=== PATIENT | male | born 1965 | race Caucasian/White ===

== ENCOUNTER 2016-11-14 23:54 | Inpatient (IN) | payer OTHER ==
--- NOTE | ~2016-11-14 | EKG ---
PATIENT: RADU FARIAS UNIT #: [id number] Ventricular Rate: 75 BPM Atrial Rate: 75 BPM P-R Interval: 132 ms QRS Duration: 100 ms Q-T Interval: 372 ms QTC Calculation(Bezet): 415 ms P [place]: 33 degrees Calculated R [place]: 46 degrees Calculated T [place]: 16 degrees Diagnosis Line: Normal sinus rhythm with sinus arrhythmia Diagnosis Line: Normal ECG Diagnosis Line: When compared with ECG of 14-NOV-2016 23:45, Diagnosis Line: No significant change was found Diagnosis Line: Confirmed by LOIDA SYLVESTER MD ([id number]) on 11/20/2016 Diagnosis Line: 11:16:32 PM INTERPRETING MD: HIGINIO MORGAN
--- NOTE | ~2016-11-14 | EKG ---
PATIENT: RADU FARIAS UNIT #: [id number] Ventricular Rate: 52 BPM Atrial Rate: 52 BPM P-R Interval: 164 ms QRS Duration: 108 ms Q-T Interval: 476 ms QTC Calculation(Bezet): 442 ms P [place]: 32 degrees Calculated R [place]: 22 degrees Calculated T [place]: 3 degrees Diagnosis Line: Sinus bradycardia Diagnosis Line: Nonspecific T wave abnormality Diagnosis Line: Otherwise normal ECG Diagnosis Line: No previous ECGs available Diagnosis Line: Confirmed by ZACH BRASWELL MD ([id number]) on 11/16/2016 Diagnosis Line: 2:15:42 PM INTERPRETING MD: MICHAELLE MORGAN
--- NOTE | ~2016-11-14 | DS ---
Unit #: [id number] #: [id number] Patient: RADU FARIAS [id number] [address] [address] [id number] I MR#: [id number] NAME: RADU FARIAS ROOM: 229 Age: 51 Sex: M Admission Date: 11/15/2016 : 1965 Discharge Date: 11/21/2016 Attending Physician: Augustina Sanchez M.D. Primary Care Physician: Gordon Garcia M.D. DISCHARGE SUMMARY PRINCIPAL DIAGNOSES 1. Acute pancreatitis. 2. Cholelithiasis, status post laparoscopic cholecystectomy. 3. Systemic inflammatory response syndrome secondary to #1. 4. Thrombocytopenia, likely secondary to illness in combination with alcohol. Discharge platelet count 86. 5. Reactive leukocytosis. Discharge white blood cell count 19.7. 6. Hyperkalemia, resolved. 7. Hematuria secondary to traumatic Loya catheter placement, resolved. 8. Transaminitis secondary to alcohol, resolved. 9. Chronic alcohol abuse without evidence of withdrawal. 10. Morbid obesity. 11. Moderate protein malnutrition. 12. Hepatic steatosis. 13. Anxiety. 14. Hypertension. CONSULTANTS Dr. Woods, general surgery. PROCEDURES 1. Laparoscopic cholecystectomy on 11/20/2016. This occurred without complication. 2. CT scan of abdomen and pelvis with contrast, 11/15/2016, with mild to moderate acute pancreatitis. Fluid tracking to the paracolic gutters. Uncomplicated cholelithiasis. Fatty infiltration of liver noted. 3. Right upper quadrant ultrasound, 11/15/2016, with diffuse fatty liver. A 1.3 cm gallstone. 4. HIDA scan on 11/16/2016 with no evidence of cystic or common duct obstruction. CLINICAL HISTORY AND HOSPITAL COURSE Mr. Farias is a very nice 51-year-old male who presents to the emergency department with complaints of abdominal pain. Please refer to History and Physical for further details. CT scan of the abdomen and pelvis in the emergency department revealed acute pancreatitis. In conjunction with these findings, the patient was found to have an elevated lipase of greater than 1900. He was subsequently admitted. The patient was started on IV fluids, make n.p.o. and antiemetics in addition to pain medication. The patient does have a strong history of alcohol use but was also found to have gallstones on CT. With supportive measure, pancreatitis resolved. I will note his triglycerides were Unit #: [id number] #: [id number] Patient: RADU FARIAS checked but were not significantly elevated. It is unclear of the source of patient's pancreatitis but it has resolved. He has been counseled significantly regarding alcohol cessation. He expresses understanding. He states, "I will no longer drink alcohol." I will note he did not have any evidence of withdrawal. In regard to patient's gallstones, LSA was consulted and patient underwent right upper quadrant ultrasound and HIDA scan, all with findings as noted. However, again, given his pancreatitis and prior reports of a "gallstone attack" he underwent laparoscopic cholecystectomy. He is now eating a regular diet without any pain, nausea or vomiting and will be discharged home. I will note, patient has had some significant leukocytosis but no evidence of infection has been found. Review of records also indicates he has had a leukocytosis ranging anywhere from 10,000 to 26,000 during this hospitalization. On day of discharge, white blood cell count is 19.7. This can be checked in a couple of weeks as an outpatient by patient's primary care physician. If he has persistent leukocytosis, he can be referred to Hematology as an outpatient. Patient did have severe electrolyte abnormalities but these have been corrected during hospitalization. He will be discharged home today. DISCHARGE CONDITION Stable. DISCHARGE STATUS Discharge to home. DISCHARGE MEDICATIONS 1. Ativan 1 mg p.o. q.8 h. p.r.n. for anxiety. 2. Amlodipine/benazepril 5/10 mg daily. 3. Lortab 5/325 one to two tablets p.o. q.6 h. p.r.n. pain. DISCHARGE INSTRUCTIONS 1. The patient was instructed to follow a heart-healthy, low-fat diet. 2. To refrain from any further alcohol use. 3. He can increase activity as tolerated. 4. I have written him off work through 11/25/2016 and he will return for one week beginning 11/26/2016 on light duty. FOLLOWUP 1. The patient will follow up with Dr. Woods in approximately 10 days. 2. Patient should follow up with his primary care physician, Dr. Garcia, in approximately 2 weeks and have repeat CBC at that time. Dictated by... Augustina Sanchez M.D. Unit #: [id number] #: [id number] Patient: RADU FARIAS DARLYN/angelo TD: 11/21/2016 20:28 JOB #: [id number] DISCHARGE SUMMARY Page 1 of 1 X Augustina Sanchez MD X DISCHARGE SUMMARY
--- NOTE | ~2016-11-14 | NM21 ---
[facility] A Service of [facility] RADIOLOGY TEXT RESULTS PATIENT: RADU FARIAS LOCATION: [facility] 321-01 : [birth year] UNIT #: [id number] AGE: [address]: Augustina Sanchez MD SEX: M ORDER DR: [id number] [facility] [address] [facility]. [place], [place] [address] [id number] I MR#: [id number] Acc #: [id number] NAME: RADU FARIAS : 1965 SEX: M STUDY DATE/TIME: 11/16/2016 12:38 UNIT: [address] ROOM: [facility] STUDY DESCRIPTION: NM Hepatobiliary W GB Attending Physician: Augustina Sanchez M.D. Ordering Physician: Duglas Holley M.D. Primary Care Physician: Gordon Garcia M.D. MEDICAL IMAGING REPORT This report is preliminary unless electronic signature is present EXAM Hepatobiliary scan INDICATION Pancreatitis. Acute onset. Epigastric and abdominal pain since hospitalization. PROCEDURE Patient was administered 5.3 mCi technetium labeled Choletec. CCK was not administered. COMPARISON Ultrasound from 11/15/2016 FINDINGS Liver shows symmetric extraction and excretion of radiotracer. Gallbladder fills by 30 minutes. IMPRESSION No evidence for cystic duct or common duct obstruction. Dictated by... Willie Mike M.D. THIS IS AN ELECTRONICALLY VERIFIED REPORT Willie Mike M.D. at 11/16/2016 4:51 PM KELLY/willem TD: 11/16/2016 15:06 JOB #: [id number] MEDICAL IMAGING REPORT Page 1 of 1 COPY
--- NOTE | ~2016-11-14 | HP ---
Unit #: [id number] #: [id number] Patient: RADU FARIAS [id number] [address] [place], [place] [address] [id number] E MR#: [id number] NAME: RADU FARIAS ROOM: Age: 51 Sex: M Admission Date: 11/14/2016 : 1965 Attending Physician: Mimi Colindres M.D. Primary Care Physician: Gordon Garcia M.D. HISTORY AND PHYSICAL CHIEF COMPLAINT Pancreatitis. HISTORY This pleasant 51-year-old male with hypertension, GERD, is admitted for pancreatitis. The patient states that over the past year he has experienced intermittent right upper quadrant, fairly significant pain. He had a similar episode two nights ago after eating a hot dog. However, yesterday he developed increasing epigastric discomfort and then nausea and vomiting with diaphoresis. Presented to this emergency department late last evening with initial blood pressure of 76/34. A CT scan was performed which was consistent with mild to moderate acute pancreatitis along with gallstones and fatty liver. Amylase and lipase at this time is normal, but I will repeat these values in the morning. The patient drinks about 6 to 12 beers a day, but again does have gallstones on CT scan. In the ER, he was bolused with 2 L of saline, and current blood pressure is 128/86. He was also treated with Zofran, morphine and ultimately Dilaudid. PAST MEDICAL HISTORY 1. GERD. 2. Hypertension. 3. Previous history of hepatitis C. 4. Anxiety. 5. Previous history of hyperlipidemia. 6. Negative stress Cardiolite in 2010. 7. Appendectomy. ALLERGIES No known drug allergies. The patient is allergic to cat dander. HOME MEDICATIONS 1. Lotrel 5/10 mg daily. 2. P.r.n. Ativan which the patient takes perhaps once a month. FAMILY HISTORY CAD, pancreatitis, gallbladder disease. SOCIAL HISTORY The patient lives with his . Stopped smoking 20 years ago. Drinks 6 to 12 beers on a daily basis but denies symptoms of withdrawal if not drinking. Does not use illicit drugs. Unit #: [id number] #: [id number] Patient: RADU FARIAS REVIEW OF SYSTEMS Notable for abdominal pain, nausea, vomiting, diaphoresis, hepatitis B, GERD, hypertension, appendectomy, anxiety. Also, right upper quadrant intermittent pain over the past year. All other systems were reviewed and are negative. PHYSICAL EXAMINATION GENERAL APPEARANCE: Pleasant, obese, 51-year-old male, currently in no acute distress. VITAL SIGNS: Temperature 97.4, pulse initially 48, current pulse is 62, respirations 15, initial blood pressure 76/34 which has improved to 128/86. O2 saturation 95% on room air. HEENT: Eyes PERRLA. Extraocular muscles are intact. Pharynx is benign. NECK: Supple without adenopathy or thyromegaly. CHEST: Clear. CARDIAC: Normal S1 and S2 without murmur. ABDOMEN: Bowel sounds are present. The patient is tender in the upper abdomen without rebound, guarding. No definite hepatosplenomegaly or masses. EXTREMITIES: Without clubbing, cyanosis or edema. Pedal pulses are present. NEUROLOGIC EXAM: The patient is awake, alert, oriented. Cranial nerves are intact. Equal strength throughout. DIAGNOSTIC STUDIES LABORATORY: Hematocrit is 49.6, white blood count is 24.3, normal platelet count. Four bands are noted. SMA-12 - glucose 169, potassium 3.4, chloride 116, CO2 is 8, calcium 8.3. Normal lipase and amylase. Alcohol level negligible. Cardiac markers are negative. IMAGING: CT scan consistent with mild to moderate acute pancreatitis. Gallstones, fatty liver, diverticular disease. CARDIOVASCULAR: EKG - sinus bradycardia, rate 52. ASSESSMENT 1. Pancreatitis: The patient does have gallstones on CT scan, and does sound as if he has episodes of biliary colic over the past year. Does, however, drink 6 to 12 beers daily. I am unsure if his pancreatitis is due to gallbladder pancreatitis versus alcohol abuse. 2. Episodes of biliary colic over the past year with gallstones noted on CT scan: The patient also has leukocytosis. 3. Metabolic acidosis. 4. Alcohol abuse: 6 to 12 beers daily. 5. History of hypertension with hypotension initially, now improved after fluids. 6. Previous history of hepatitis B. PLANS 1. Aggressive IV fluids, check I's and O's. 2. Pain control. 3. DVT and gastritis prophylaxis. 4. Check gallbladder ultrasound and triglyceride level. Unit #: [id number] #: [id number] Patient: RADU FARIAS 5. Will ask [facility] to see for biliary colic. 6. Vitamins. 7. Hold Lotrel. 8. Check B12 level. 9. Obtain ABG. 10. Zosyn for now pending gallbladder ultrasound. Dictated by Taz Alcala/cary TD: 11/15/2016 05:15 JOB #: [id number] HISTORY AND PHYSICAL Page 1 of 1 X Payal Pena MD X HISTORY AND PHYSICAL
--- NOTE | ~2016-11-14 | CO ---
Unit #: [id number] #: [id number] Patient: RADU FARIAS [id number] [address] [place], [place] [address] [id number] MR#: [id number] NAME: RADU FARIAS ROOM: 321 Age: 51 Sex: M Admission Date: 11/15/2016 : 1965 Attending Physician: Augustina Sanchez M.D. Primary Care Physician: Gordon Garcia M.D. Consultation Date: 11/15/2016 CONSULTATION REPORT HISTORY AND EXAM Mr. Farias is a 51-year-old gentleman who presented to the emergency department after sudden onset of copious nonbloody emesis and diarrhea at 8:00 p.m. last night. He also was complaining of some severe epigastric pain that was new. The patient had been eating around 1:00 in the afternoon and also drinking a significant amount of beer that day. He also has been complaining of some episodic right upper quadrant pain for several months. He denied any fever, chills, or jaundice. In the emergency room a CT scan showed parapancreatic edema consistent with pancreatitis. He also had uncomplicated gallstones without any biliary ductal dilatation. He does have a long history of alcohol abuse. PAST MEDICAL HISTORY Hepatitis C, reflux hypertension, anxiety, alcohol abuse, hyperlipidemia, and he is status post appendectomy. ALLERGIES No allergies to medication. MEDICATIONS His only medication includes Lotrel and Ativan on a p.r.n. basis. FAMILY HISTORY Atherosclerotic coronary artery disease and other family members who had pancreatitis. SOCIAL HISTORY He is and is at the bedside. He has not smoked for many years but he continues to drink on a daily basis. REVIEW OF SYSTEMS No fever, chills, hematemesis, hematochezia, melena, weight loss. PHYSICAL EXAMINATION VITAL SIGNS: Temperature is 97.4, pulse 60, respirations 16, blood pressure 136/69. GENERAL: He is awake, alert and oriented; however, he is diaphoretic and ill-appearing. HEENT: No scleral icterus. NECK: No carotid bruits. CARDIAC: Regular rate and rhythm without murmur. LUNGS: Clear throughout. ABDOMEN: Exquisitely tender in the epigastrium with involuntary guarding, but in the lower abdomen his abdomen is soft and there is no rebound Unit #: [id number] #: [id number] Patient: RADU FARIAS. EXTREMITIES: No edema. NEUROLOGIC: Grossly intact. DIAGNOSTIC STUDIES LABORATORY STUDIES: Blood gas shows a pH 7.354, pCO2 41, pO2 77 on room air. His initial basic metabolic panel showed sodium of 137, potassium 3.4, chloride 116, serum CO2 8, BUN 7, creatinine 0.6, glucose 169, calcium 8.3, albumin 3.6, total bilirubin 1.5, AST, ALT and alk phos are normal. Amylase and lipase 6 and 15, alcohol 5. Hemoglobin 16.2, hematocrit 49.6, white count 24,300, platelet 171,000. Repeat chemistries are pending at this time. I have also ordered lactic acid, magnesium and phosphorus. IMAGING STUDIES: Ultrasound of the gallbladder has been ordered and pending. ASSESSMENT AND PLAN Patient with moderate pancreatitis with a history of alcohol binge drinking and alcoholism, as well as cholelithiasis. They both were etiologic factors, especially given the fact that he has been having some right upper quadrant pain over the last several months. Lipids have been ordered and are pending. Patient will be admitted, hydrated and given supportive care. We will review his ultrasound but regardless of the etiology he should undergo laparoscopic cholecystectomy to remove the gallstones as an etiology factor. Serum CO2 and blood gas do not correlate. Repeat labs are pending. He needs continued hydration. Ultrasound of the gallbladder is pending. Alcohol withdrawal precautions have been ordered. Dictated by... Philip Woods M.D. FRANKY/ira TD: 11/16/2016 06:58 JOB #: [id number] CONSULTATION REPORT Page 1 of 1 X Philip Woods MD X CONSULTATION REPORT
--- NOTE | ~2016-11-14 | CR75 ---
[facility] A Service of [facility] RADIOLOGY TEXT RESULTS PATIENT: RADU FARIAS LOCATION: C2A 229-01 : [birth year] UNIT #: [id number] AGE: [address]: Augustina Sanchez MD SEX: M ORDER DR: [id number] [facility] [address] [facility]. [place], [place] [address] [id number] I MR#: [id number] Acc #: [id number] NAME: RADU FARIAS : 1965 SEX: M STUDY DATE/TIME: 11/20/2016 9:49 UNIT: C2A ROOM: 229 STUDY DESCRIPTION: CR Cholecystostomy Perc W Img Attending Physician: Augustina Sanchez M.D. Ordering Physician: Philip Woods M.D. Primary Care Physician: Gordon Garcia M.D. MEDICAL IMAGING REPORT This report is preliminary unless electronic signature is present EXAM Intraoperative cholangiogram INDICATIONS Laparoscopic cholecystectomy FLUOROSCOPY TIME 20 seconds and 2 images were submitted FINDINGS The study demonstrates injection of the cystic duct remnant. Contrast opacifies the common bile duct without evidence of obstruction. The visualized intrahepatic biliary radicles are unremarkable. Please refer to procedure report for complete details. Dictated by... Lazarus Lovell M.D. THIS IS AN ELECTRONICALLY VERIFIED REPORT Lazarus Lovell M.D. at 11/22/2016 9:02 AM ARS/to TD: 11/20/2016 13:24 JOB #: [id number] MEDICAL IMAGING REPORT Page 1 of 1 COPY
--- NOTE | ~2016-11-14 | CO ---
Unit #: [id number] #: [id number] Patient: RADU FARIAS [id number] [address] [address] [id number] I MR#: [id number] NAME: RADU FARIAS ROOM: 229 Age: 51 Sex: M Admission Date: 11/15/2016 : 1965 Attending Physician: Augustina Sanchez M.D. Primary Care Physician: Gordon Garcia M.D. Consultation Date: 11/19/2016 CONSULTATION REPORT REASON FOR CONSULTATION Gross hematuria. HISTORY This 51-year-old man was admitted with acute pancreatitis. He had a Loya catheter placed, somewhat traumatically, and this was followed by gross hematuria although it was not noticed until the next day. The hematuria has completely resolved. He is ready for his catheter to come out, according to general surgery. He denies any prior urologic history. Specifically, he has had no hematuria. He has no voiding complaints other than nocturia when he drinks beer. He has no frequency, urgency or trouble emptying. He has no family history of prostate cancer, history of urinary infections or stone disease. He sees Dr. Garcia and had PSA and digital exam which were normal at the fair last summer. His admission symptoms of pancreatitis are improved although cholecystectomy is being considered. PAST MEDICAL HISTORY 1. GERD. 2. Hypertension. 3. Prior history of hepatitis C. 4. Anxiety. 5. History of hyperlipidemia. 6. Negative Cardiolite in 2010. SURGERIES Appendectomy. MEDICATIONS Lotrel and Ativan at home. Currently receivin. Thiamine. 2. Zofran. 3. Multivitamins. 4. Magnesium. 5. Loperamide. 6. Dilaudid. 7. Ativan. 8. Hydralazine. 9. Pepcid. 10. Zosyn. 11. Bentyl. Unit #: [id number] #: [id number] Patient: RADU FARIAS 12. Combivent. ALLERGIES No known drug allergies. FAMILY HISTORY Negative for prostate cancer. SOCIAL HISTORY Stopped smoking 20 years after 15 years of one pack per day. Lives with his . Still drinks 6-12 beers daily. REVIEW OF SYSTEMS Abdominal pain, nausea, vomiting, intermittent right upper quadrant pain, anxiety. Urologic symptoms as noted above or lack thereof. Ten other systems reviewed and negative. PHYSICAL EXAMINATION GENERAL: The patient is awake, alert, comfortable, lying in bed. Loya catheter drainage morin bile-colored urine, clear. ABDOMEN: Large, soft, full. Upper abdominal tenderness but soft. GENITALIA: Normal circumcised penis, testes and epididymis, normal, descended. Digital exam deferred. DIAGNOSTIC STUDIES LABORATORY: BUN 15, creatinine 0.7. Urinalysis on admission - 25-50 white cells, 200-300 red cells, no bacteria. Urine culture final - no growth. IMAGING: A CT scan of the abdomen and pelvis with IV contrast shows normal kidneys, ureter and bladder. Prostate normal size with symmetric central calcification. No stones or obstruction seen. IMPRESSION 1. Transient gross hematuria consistent with Loya catheter trauma and has resolved. 2. No pre-existing urologic history or symptoms. PLAN Agree with catheter removal. Will follow in-house. If hematuria recurs, I have emphasized to patient that outpatient office cystoscopy would be appropriate to rule out any small lesion in the bladder. Thank you for the consultationAvinash. Dictated by... Philip Briones M.D. [facility]/cary TD: 11/19/2016 10:54 JOB #: [id number] Unit #: [id number] #: [id number] Patient: RADU FARIAS CC: Taz Lema M.D. CONSULTATION REPORT Page 1 of 1 X Philip Briones MD CONSULTATION REPORT
--- NOTE | ~2016-11-14 | US5 ---
[facility] A Service of [facility] RADIOLOGY TEXT RESULTS PATIENT: RADU FARIAS LOCATION: [facility] : [birth year] UNIT #: [id number] AGE: [address]: Augustina Sanchez MD SEX: M ORDER DR: [id number] [facility] [address] [facility]. [place], [place] [address] [id number] I MR#: [id number] Acc #: [id number] NAME: RADU FARIAS : 1965 SEX: M STUDY DATE/TIME: 11/15/2016 18:11 UNIT: [address] ROOM: [facility] STUDY DESCRIPTION: US Abdominal Complete Attending Physician: Augustina Sanchez M.D. Ordering Physician: Augustina Sanchez M.D. Primary Care Physician: Gordon Garcia M.D. MEDICAL IMAGING REPORT This report is preliminary unless electronic signature is present EXAM Right upper quadrant ultrasound HISTORY Abdomen pain, nausea, vomiting and diarrhea for 1 day. FINDINGS Ultrasound examination of the right upper quadrant demonstrates echogenic and coarsened hepatic parenchyma, characteristic of fatty infiltration of the liver and corresponding to findings on CT earlier today. A 1.3 cm gallstone. No gallbladder distension or gallbladder wall thickening or biliary ductal dilatation. The common bile duct measures 3 mm in diameter. Survey of the right kidney demonstrates no hydronephrosis. IMPRESSION 1. Diffuse fatty infiltration of the liver. 2. A 1.3 cm gallstone. 3. These are stable findings compared to CT earlier today. 4. No biliary dilatation, gallbladder wall thickening or gallbladder distension. Dictated by... Aden Chowdhury M.D. THIS IS AN ELECTRONICALLY VERIFIED REPORT Aden Chowdhury M.D. at 11/16/2016 12:04 AM KRYSTYNA/jean TD: 11/15/2016 21:28 JOB #: [id number] [facility] A Service of [facility] RADIOLOGY TEXT RESULTS PATIENT: RADU FARIAS LOCATION: [facility] -01 : [birth year] UNIT #: [id number] AGE: [address]: Augustina Sanchez MD SEX: M ORDER DR: MEDICAL IMAGING REPORT Page 1 of 1 COPY
--- NOTE | ~2016-11-14 | BMI ---
[facility] Nutrition Therapy DATE: 11/15/16 Patient: RADU FARIAS Physician: MARLEEN Address: [address] Room/Bed: [address] [place] [address], Zip: [place] [address] Admit Date: 11/15/16 Date of : [birth year] Height: 5 9 Weight: 282 128.3 HIGH BMI NOTE: ANTHROPOMETRICS: HT: 69" WT: 128.3 KG BMI: 41.8 INTERVENTION: 1. NO DIET ORDERED RECOMMENDATIONS: 1. ONCE MEDICALLY FEASIBLE, ADVANCE THE PT TO A HEART HEALTHY DIET TOLERATED AND APPROPRIATE. Respectfully, ELISE WANG RD, LD [facility] cc: client file
--- NOTE | ~2016-11-14 | CT2 ---
[facility] A Service of [facility] & [facility] RADIOLOGY TEXT RESULTS PATIENT: RADU FARIAS LOCATION: [facility] : [birth year] UNIT #: [id number] AGE: [address]: Mimi Colindres MD SEX: M ORDER DR: [id number] [facility] [address] [place], [place] [address] [id number] MR#: [id number] Acc #: [id number] NAME: RADU FARIAS : 1965 SEX: M STUDY DATE/TIME: 11/15/2016 2:37 UNIT: JASON ROOM: STUDY DESCRIPTION: CT Abd and Pelv W Cont Attending Physician: Mimi Colindres M.D. Ordering Physician: Basim Park M.D. Primary Care Physician: Gordon Garcia M.D. MEDICAL IMAGING REPORT This report is preliminary unless electronic signature is present EXAM Abdomen and pelvis CT with contrast, 11/15/2016 INDICATION Abdominal pain in a 51-year-old male, vomiting for over 4 hours after 6 beers. Abdominal pain, generalized weakness, nausea and vomiting. TECHNIQUE Contrast-enhanced abdomen and pelvic CT performed. No comparisons. This CT exam was performed with one or more of the following radiation dose reduction techniques: automatic exposure control, adjustment of mA and/or kV according to patient size, and iterative reconstruction. FINDINGS CT ABDOMEN: Included lung bases demonstrate atelectatic changes of the lower lobes, left greater than right. No pleural effusion. No pericardial effusion. Aorta demonstrates no aneurysm or dissection. There is a hiatal hernia containing fat. Spleen and adrenal glands are unremarkable. There is uncomplicated cholelithiasis and there is moderate fatty infiltration of the liver. The kidneys are normal. There is fullness and inflammatory change of the pancreatic body and tail and lesser involvement of the uncinate process and head of the pancreas. There is fluid tracking in the peripancreatic fat and into the small bowel mesentery and into the pericolic gutters, left greater than right. Imaging features are most characteristic of acute pancreatitis, mild to moderate in degree. No associated peripancreatic fluid collection identified to suggest pseudocyst at this time. Adjacent vasculature appears patent. Correlate with amylase and lipase levels. [facility] A Service of [facility] & [facility] RADIOLOGY TEXT RESULTS PATIENT: RADU FARIAS [id number] [birth year] UNIT #: [id number] AGE: [address]: Mimi Colindres MD SEX: M ORDER DR: CT PELVIS: Bladder unremarkable. Prostate within normal limits. No drainable fluid collection in the pelvis. Intermittent diverticulosis. Appendix surgically absent by history. Inguinal canal is unremarkable with exception of a tiny right inguinal hernia containing fat only. No suspicious bone lesion. IMPRESSION 1. Imaging features most characteristic of mild to moderate acute pancreatitis. There is no associated peripancreatic fluid collection to suggest pseudocyst. Small amount of fluid tracking in the pericolic gutters, left greater than right. Correlate with amylase and lipase levels. 2. Uncomplicated cholelithiasis. 3. Fatty infiltration of the liver. 4. The appendix is surgically absent. 5. Incidental diverticulosis. STAT * RESULT Dictated by... Cade Mckeon M.D. THIS IS AN ELECTRONICALLY VERIFIED REPORT Cade Mckeon M.D. at 11/15/2016 6:24 AM Belinda TD: 11/15/2016 03:12 JOB #: [id number] MEDICAL IMAGING REPORT Page 1 of 1 COPY
--- NOTE | ~2016-11-14 | OR ---
Unit #: [id number] #: [id number] Patient: RADU FARIAS [id number] [address] [address] [id number] I MR#: [id number] NAME: RADU FARIAS ROOM: 229 Date of Procedure: 11/20/2016 Admission Date: 11/15/2016 Surgeon: Philip Woods M.D. : 1965 Attending Physician: Augustina Sanchez M.D. Primary Care Physician: Gordon Garcia M.D. OPERATIVE REPORT PREOPERATIVE DIAGNOSIS Gallstone pancreatitis. POSTOPERATIVE DIAGNOSIS Gallstone pancreatitis. PROCEDURE PERFORMED Laparoscopic cholecystectomy with intraoperative cholangiogram. FINDINGS Normal cholangiogram. ANESTHESIA General endotracheal anesthesia. DIRECTOR OF PROPERTY MANAGEMENT Elizabeth. ESTIMATED BLOOD LOSS 30 mL. INDICATIONS FOR PROCEDURE A 51-year-old gentleman, who presented to the hospital with pancreatitis. Although, he has a significant alcohol history. He also was found to have cholelithiasis. After resolution of his pancreatitis, he is brought the operating room for cholecystectomy and cholangiogram. DESCRIPTION OF PROCEDURE The patient was transported from his hospital room to the operating room, and after induction of general endotracheal anesthesia, his abdominal wall hair was clipped, and he was prepped and draped in usual sterile fashion. The patient was already on Lovenox and had been given preoperative antibiotics. A 5-mm supraumbilical incision made. Veress needle was placed. Pneumoperitoneum was created. Then, a 5-mm trocar was placed. Laparoscope was introduced into the peritoneal cavity. Under direct vision, the epigastric and lateral ports were placed. There were omental adhesions to the gallbladder, which were stripped away. The gallbladder was grasped and elevated. The infundibulum identified and retracted laterally. [place] of [place] was dissected out, clearly identifying the cystic duct, gallbladder, and cystic duct-common duct junction and the posteriorly placed cystic artery. Through a separate stab incision, the cholangiocatheter was passed into the peritoneal cavity. The cystic duct Unit #: [id number] #: [id number] Patient: RADU FARIAS was swept upwards and a clip was placed in the cystic duct centered to gallbladder and incision in the cystic duct was made. The cholangiocath was positioned appropriately and secured. It easily flushed and there was no leakage. Cholangiogram was then performed and there was prompt flow of dye throughout the biliary tree and into the duodenum. After completion of cholangiogram, the cholangiocatheter was removed. Three clips were placed on the distal cystic duct and it was completely divided. Posteriorly placed cystic artery was doubly clipped proximally and distally and divided. I then dissected the gallbladder liver bed using cautery dissection. Once it was freed up from its hepatic attachments, it was brought out through the epigastric port. We irrigated and there was adequate hemostasis. The liver bed was good and dry with good hemostasis. From the omentum where the adhesions were taken down, there was some mild oozing and because of his history of Lovenox use, some FloSeal was placed over this to facilitate hemostasis. The epigastric fascial defect was closed with a neoClose device and the closure was airtight. I then reduced the pneumoperitoneum as I removed laparoscope and trocars. 0.5% Marcaine with epinephrine was infiltrated in each trocar site. The skin was closed with 4-0 Monocryl subcuticular closure and Dermabond skin adhesive. Sponges and needle counts were correct x3. The patient tolerated the procedure well and transported to recovery in stable condition. Findings and postoperative expectations were discussed with his family. Dictated by... Taz Baker/gurwinder TD: 11/20/2016 23:37 JOB #: [id number] OPERATIVE REPORT Page 1 of 1 X Philip Woods MD X PROCEDURE OPERATIVE NOTE
[~2016-11-14 23:54] MED LIST: CENTRAL VITE TA1 TAB PO; CRESTOR5 MG PO; LISINOPRIL10 MG PO
[2016-11-15 00:38] LABS: BASOPHIL% 0.2 % (0-2.5); EOSINOPHIL% 0.1 % (0.0-7.0); HEMATOCRIT 49.6 % (38.0-50.0); HEMOGLOBIN 16.2 gm/dL (13.0-16.0); LYMPHOCYTE# 1.3 X10e3 (1.0-3.5); LYMPHOCYTE% 5.3 % (17.0-45.0); MEAN CELL VOLUME 93.3 FL (83-96); MEAN CORPUSCULAR HEMOGLOBIN 30.4 PG (28-34); MEAN CORPUSCULAR HGB CONC 32.6 g/dL (30-36); MEAN PLATELET VOLUME 9.9 FL (6.5-11.5); MONOCYTE# 2.4 X10e3 (0-1.0); MONOCYTE% 9.7 % (3.0-12.0); NEUTROPHIL# 20.5 X10e3 (1.5-7.1); NEUTROPHIL% 84.7 % (40-75); PLATELET COUNT 171 X10e3 (140-420); RED BLOOD COUNT 5.31 X10e (3.90-5.60); RED CELL DISTRIBUTION WIDTH 13.9 % (11.0-15.5); WHITE BLOOD COUNT 24.3 X10e3 (4.0-10.5)
[2016-11-15 00:39] LABS: DIFF IND YES
[2016-11-15 00:42] LABS: ALBUMIN SERUM 3.6 g/dL (3.5-5.0); BILIRUBIN,TOTAL 1.5 mg/dL (0.2-2.0); BUN/CREATININE RATIO 11.66; CALCIUM SERUM 8.3 mg/dL (8.4-10.2); CREATININE SERUM 0.6 mg/dL (0.6-1.4); GLOM FILT RATE Estimated 118.1 mL/min (>60); POTASSIUM 3.4 mmol/L (3.5-5.1); PROTEIN TOTAL SERUM 6.3 g/dL (6.0-8.3)
[2016-11-15 00:43] LABS: BILIRUBIN, DIRECT 0.1 mg/dL (0.0-0.2); BILIRUBIN,INDIRECT 1.4 mg/dL (0.0-0.9)
[2016-11-15 00:49] LABS: POC - CKMB 1.8 ng/mL (0.0-7.9); POC - TROPONIN <0.05 ng/mL (<=0.05)
[2016-11-15 00:59] LABS: HYPERSEGMENTED POLYS PRESENT; PLATELET ESTIMATE DECREASED (NORMAL)
[2016-11-15 01:00] LABS: RBC NORMAL YES; SMUDGE CELLS 4 /100
[2016-11-15] MEDS ORDERED: AMLODIPINE-BENA1 CA1 PO (01:34)
[2016-11-15] MEDS ORDERED: ATIVAN PO (01:34)
[2016-11-15 03:24] LABS: POC - CKMB 2.5 ng/mL (0.0-7.9); POC - TROPONIN <0.05 ng/mL (<=0.05)
[2016-11-15 05:23] LABS: ARTERIAL BLD GAS O2 SATURATION 93.9 % (90.0-100.0); ARTERIAL BLOOD GAS ALLEN TEST NORMAL; ARTERIAL BLOOD GAS ART SITE LEFT RADIAL; ARTERIAL BLOOD GAS CARBOXY HB 0.9 %sat (0.0-9.0); ARTERIAL BLOOD GAS MET HB 0.8 %sat (0.0-2.0); ARTERIAL BLOOD GAS PCO2 41.4 mmHg (35.0-45.0); ARTERIAL BLOOD GAS PO2 76.6 mmHg (80.0-100); ARTERIAL BLOOD GAS pH 7.354 (7.350-7.450); ARTERIAL DRAW? YES
[2016-11-15 05:48] LABS: BASOPHIL% 0.1 % (0-2.5); DIFF IND NO; HEMATOCRIT 47.9 % (38.0-50.0); HEMOGLOBIN 15.6 gm/dL (13.0-16.0); LYMPHOCYTE# 0.5 X10e3 (1.0-3.5); LYMPHOCYTE% 2.9 % (17.0-45.0); MEAN CELL VOLUME 92.7 FL (83-96); MEAN CORPUSCULAR HEMOGLOBIN 30.2 PG (28-34); MEAN CORPUSCULAR HGB CONC 32.6 g/dL (30-36); MEAN PLATELET VOLUME 9.8 FL (6.5-11.5); MONOCYTE# 0.7 X10e3 (0-1.0); MONOCYTE% 3.9 % (3.0-12.0); NEUTROPHIL# 17.2 X10e3 (1.5-7.1); NEUTROPHIL% 93.1 % (40-75); PLATELET COUNT 143 X10e3 (140-420); RED BLOOD COUNT 5.17 X10e (3.90-5.60); RED CELL DISTRIBUTION WIDTH 13.9 % (11.0-15.5); WHITE BLOOD COUNT 18.5 X10e3 (4.0-10.5)
[2016-11-15 05:51] LABS: INR 1.1
[2016-11-15 07:13] LABS: ALBUMIN SERUM 3.6 g/dL (3.5-5.0); BILIRUBIN,TOTAL 1.6 mg/dL (0.2-2.0); BUN/CREATININE RATIO 10.83; CALCIUM SERUM 8.1 mg/dL (8.4-10.2); CREATININE SERUM 1.2 mg/dL (0.6-1.4); GLOM FILT RATE Estimated 70.6 mL/min (>60); POTASSIUM 4.8 mmol/L (3.5-5.1); PROTEIN TOTAL SERUM 6.6 g/dL (6.0-8.3)
[2016-11-16 07:20] LABS: HEMATOCRIT 49.3 % (38.0-50.0); LYMPHOCYTE# 0.6 X10e3 (1.0-3.5); LYMPHOCYTE% 2.1 % (17.0-45.0); MEAN CORPUSCULAR HEMOGLOBIN 30.5 PG (28-34); MEAN CORPUSCULAR HGB CONC 32.5 g/dL (30-36); MEAN PLATELET VOLUME 10.1 FL (6.5-11.5); MONOCYTE# 2.5 X10e3 (0-1.0); MONOCYTE% 8.6 % (3.0-12.0); NEUTROPHIL% 89.3 % (40-75); PLATELET COUNT 123 X10e3 (140-420); RED BLOOD COUNT 5.24 X10e (3.90-5.60); RED CELL DISTRIBUTION WIDTH 14.1 % (11.0-15.5)
[2016-11-16 07:23] LABS: DIFF IND NO; WHITE BLOOD COUNT 29.2 X10e3 (4.0-10.5)
[2016-11-16 07:57] LABS: ALBUMIN SERUM 3.4 g/dL (3.5-5.0); BILIRUBIN,TOTAL 1.6 mg/dL (0.2-2.0); CALCIUM SERUM 7.7 mg/dL (8.4-10.2)
[2016-11-16 08:02] LABS: POTASSIUM 6.1 mmol/L (3.5-5.1)
[2016-11-16 14:30] LABS: URINE SOURCE CATH
[2016-11-16 14:31] LABS: CULTURE INDICATED? YES; URBCS1 AUWI 200-300 /[HPF] (0-2); URINE APPEARANCE TURBID; URINE BACTERIA AUWI NEG (NEGATIVE); URINE BILIRUBIN NEG (NEG); URINE BLOOD 3+ (NEG); URINE COLOR ORANGE; URINE GLUCOSE 100 MG/DL (NEG); URINE KETONE NEG (NEG); URINE LEUKOCYTE ESTERASE 1+ (NEG); URINE NITRATE NEG (NEG); URINE PH 5.5 (5-8); URINE PROTEIN 1+ (NEG); URINE SPECIFIC GRAVITY 1.038 (1.003-1.035); URINE SQUAMOUS EPITHELIAL CELL OCC /[HPF]; UWBCS1 AUWI 25-50 (0-5)
[2016-11-16 14:41] LABS: BUN/CREATININE RATIO 12.5; CALCIUM SERUM 8.3 mg/dL (8.4-10.2); CREATININE SERUM 1.2 mg/dL (0.6-1.4); GLOM FILT RATE Estimated 70.6 mL/min (>60); POTASSIUM 4.8 mmol/L (3.5-5.1)
[2016-11-17 06:40] LABS: HEMATOCRIT 42.5 % (38.0-50.0); MEAN CELL VOLUME 93.8 FL (83-96); MEAN CORPUSCULAR HEMOGLOBIN 30.2 PG (28-34); MEAN CORPUSCULAR HGB CONC 32.2 g/dL (30-36); MEAN PLATELET VOLUME 10.7 FL (6.5-11.5); RED BLOOD COUNT 4.54 X10e (3.90-5.60); RED CELL DISTRIBUTION WIDTH 14.1 % (11.0-15.5); WHITE BLOOD COUNT 26.6 X10e3 (4.0-10.5)
[2016-11-17 06:50] LABS: HEMOGLOBIN 13.7 gm/dL (13.0-16.0)
[2016-11-17 07:11] LABS: BILIRUBIN,TOTAL 2.1 mg/dL (0.2-2.0); CALCIUM SERUM 8.6 mg/dL (8.4-10.2); POTASSIUM 4.8 mmol/L (3.5-5.1); PROTEIN TOTAL SERUM 5.4 g/dL (6.0-8.3)
[2016-11-18 06:20] LABS: BASOPHIL% 0.2 % (0-2.5); EOSINOPHIL% 0.1 % (0.0-7.0); HEMATOCRIT 39.1 % (38.0-50.0); HEMOGLOBIN 12.6 gm/dL (13.0-16.0); LYMPHOCYTE# 1.3 X10e3 (1.0-3.5); LYMPHOCYTE% 5.7 % (17.0-45.0); MEAN CORPUSCULAR HEMOGLOBIN 30.2 PG (28-34); MEAN CORPUSCULAR HGB CONC 32.1 g/dL (30-36); MEAN PLATELET VOLUME 10.9 FL (6.5-11.5); MONOCYTE# 2.2 X10e3 (0-1.0); MONOCYTE% 9.9 % (3.0-12.0); NEUTROPHIL# 18.6 X10e3 (1.5-7.1); NEUTROPHIL% 84.1 % (40-75); PLATELET COUNT 84 X10e3 (140-420); RED BLOOD COUNT 4.16 X10e (3.90-5.60); RED CELL DISTRIBUTION WIDTH 14.1 % (11.0-15.5); WHITE BLOOD COUNT 22.2 X10e3 (4.0-10.5)
[2016-11-18 06:21] LABS: DIFF IND NO
[2016-11-18 07:09] LABS: ALBUMIN SERUM 2.9 g/dL (3.5-5.0); BILIRUBIN,TOTAL 1.7 mg/dL (0.2-2.0); BUN/CREATININE RATIO 21.42; CALCIUM SERUM 8.4 mg/dL (8.4-10.2); CREATININE SERUM 0.7 mg/dL (0.6-1.4); GLOM FILT RATE Estimated 110.9 mL/min (>60); PHOSPHOROUS 1.6 mg/dL (2.5-4.6); POTASSIUM 4.2 mmol/L (3.5-5.1); PROTEIN TOTAL SERUM 6.2 g/dL (6.0-8.3)
[2016-11-19 07:55] LABS: HEMATOCRIT 36.9 % (38.0-50.0); MEAN CELL VOLUME 92.3 FL (83-96); MEAN CORPUSCULAR HEMOGLOBIN 30.1 PG (28-34); MEAN CORPUSCULAR HGB CONC 32.6 g/dL (30-36); MEAN PLATELET VOLUME 9.8 FL (6.5-11.5); WHITE BLOOD COUNT 18.8 X10e3 (4.0-10.5)
[2016-11-19 08:21] LABS: ALBUMIN SERUM 2.5 g/dL (3.5-5.0); BILIRUBIN,TOTAL 1.9 mg/dL (0.2-2.0); BUN/CREATININE RATIO 13.33; CREATININE SERUM 0.9 mg/dL (0.6-1.4); GLOM FILT RATE Estimated 99.9 mL/min (>60); PROTEIN TOTAL SERUM 5.8 g/dL (6.0-8.3)
[2016-11-20 06:52] LABS: BASOPHIL# 0.1 X10e3 (0-0.3); BASOPHIL% 0.3 % (0-2.5); EOSINOPHIL# 0.3 X10e3 (0-0.7); EOSINOPHIL% 1.4 % (0.0-7.0); HEMATOCRIT 38.7 % (38.0-50.0); HEMOGLOBIN 12.7 gm/dL (13.0-16.0); LYMPHOCYTE# 1.5 X10e3 (1.0-3.5); LYMPHOCYTE% 7.3 % (17.0-45.0); MEAN CELL VOLUME 92.5 FL (83-96); MEAN CORPUSCULAR HEMOGLOBIN 30.3 PG (28-34); MEAN CORPUSCULAR HGB CONC 32.7 g/dL (30-36); MEAN PLATELET VOLUME 9.9 FL (6.5-11.5); MONOCYTE# 2.7 X10e3 (0-1.0); MONOCYTE% 12.7 % (3.0-12.0); NEUTROPHIL# 16.4 X10e3 (1.5-7.1); NEUTROPHIL% 78.3 % (40-75); PLATELET COUNT 94 X10e3 (140-420); RED BLOOD COUNT 4.19 X10e (3.90-5.60); RED CELL DISTRIBUTION WIDTH 13.9 % (11.0-15.5)
[2016-11-20 06:54] LABS: DIFF IND YES
[2016-11-20 07:12] LABS: RBC NORMAL YES
[2016-11-20 07:13] LABS: PLATELET ESTIMATE DECREASED (NORMAL)
[2016-11-20 07:33] LABS: ALBUMIN SERUM 2.5 g/dL (3.5-5.0); BILIRUBIN,TOTAL 1.6 mg/dL (0.2-2.0); BUN/CREATININE RATIO 12.85; CREATININE SERUM 0.7 mg/dL (0.6-1.4); GLOM FILT RATE Estimated 110.9 mL/min (>60); POTASSIUM 3.8 mmol/L (3.5-5.1); PROTEIN TOTAL SERUM 5.9 g/dL (6.0-8.3)
[2016-11-21 07:30] LABS: ALBUMIN SERUM 2.3 g/dL (3.5-5.0); BILIRUBIN,TOTAL 1.1 mg/dL (0.2-2.0); BUN/CREATININE RATIO 16.25; CALCIUM SERUM 7.8 mg/dL (8.4-10.2); CREATININE SERUM 0.8 mg/dL (0.6-1.4); GLOM FILT RATE Estimated 104.9 mL/min (>60); POTASSIUM 4.4 mmol/L (3.5-5.1); PROTEIN TOTAL SERUM 5.5 g/dL (6.0-8.3)
[2016-11-21 07:40] LABS: BASOPHIL# 0.1 X10e3 (0-0.3); BASOPHIL% 0.5 % (0-2.5); EOSINOPHIL# 0.1 X10e3 (0-0.7); EOSINOPHIL% 0.7 % (0.0-7.0); HEMATOCRIT 41.8 % (38.0-50.0); HEMOGLOBIN 13.5 gm/dL (13.0-16.0); LYMPHOCYTE# 1.9 X10e3 (1.0-3.5); LYMPHOCYTE% 9.8 % (17.0-45.0); MEAN CELL VOLUME 92.4 FL (83-96); MEAN CORPUSCULAR HEMOGLOBIN 29.9 PG (28-34); MEAN CORPUSCULAR HGB CONC 32.4 g/dL (30-36); MEAN PLATELET VOLUME 10.4 FL (6.5-11.5); MONOCYTE# 1.9 X10e3 (0-1.0); MONOCYTE% 9.8 % (3.0-12.0); NEUTROPHIL# 15.6 X10e3 (1.5-7.1); NEUTROPHIL% 79.2 % (40-75); PLATELET COUNT 86 X10e3 (140-420); RED BLOOD COUNT 4.52 X10e (3.90-5.60); RED CELL DISTRIBUTION WIDTH 13.9 % (11.0-15.5); WHITE BLOOD COUNT 19.7 X10e3 (4.0-10.5)
[2016-11-21 07:47] LABS: DIFF IND NO
[2016-11-21] MEDS ORDERED: HYDROCODON-ACE1 EAC7 PO (11:35)
== END 2016-11-21 12:19 | disposition home health service (06) | DRG 418 ==
LOC: CED 23:54 → C3A PCU 11-15 04:45 → C2A 11-17 19:22
PROVIDERS: Emergency Medicine; Internal Medicine; Specialist; Surgery
PROC: BF10YZZ Fluoroscopy of Bile Ducts using Other Contrast (ICD-10-PCS; 2016-11-20)
PROC: 0FT44ZZ Resection of Gallbladder, Percutaneous Endoscopic Approach (ICD-10-PCS; principal; 2016-11-20 08:30)
DX: K85.10 Biliary acute pancreatitis without necrosis or infection (principal); K80.10 Calculus of gallbladder with chronic cholecystitis without obstruction; R65.10 Systemic inflammatory response syndrome (SIRS) of non-infectious origin without acute organ dysfunction; D69.6 Thrombocytopenia, unspecified; E44.0 Moderate protein-calorie malnutrition; E87.2 Acidosis; E87.5 Hyperkalemia; T83.83XA Hemorrhage due to genitourinary prosthetic devices, implants and grafts, initial encounter; K21.9 Gastro-esophageal reflux disease without esophagitis; E78.5 Hyperlipidemia, unspecified; F41.9 Anxiety disorder, unspecified; Z87.891 Personal history of nicotine dependence; D72.828 Other elevated white blood cell count; R31.0 Gross hematuria; R74.0 Nonspecific elevation of levels of transaminase and lactic acid dehydrogenase [LDH]; F10.20 Alcohol dependence, uncomplicated; E66.01 Morbid (severe) obesity due to excess calories; I10 Essential (primary) hypertension; Z90.49 Acquired absence of other specified parts of digestive tract; Z86.19 Personal history of other infectious and parasitic diseases
CPT/HCPCS: 36415; 36600; 74177; 76700; 78226; 80048; 80053; 80076; 81003; 82150; 82553; 82607; 82803; 83605; 83690; 83735; 84100; 84478; 84484; 85025; 85027; 85610; 85730; 87086; 88304; 90732; 93005; 94010; 94640; 94760; 96361; 96374; 96375; 99285; A9537; G0009; G0480; J0330; J0610; J0690; J1100; J1170; J1610; J1650; J1940; J2250; J2270; J2405; J2543; J2710; J2765; J3010; J3411; J7042; Q9967

== ENCOUNTER 2016-12-04 16:43 | Inpatient (IN) | payer OTHER ==
--- NOTE | ~2016-12-04 | CO ---
Unit #: [id number] #: [id number] Patient: RADU FARIAS [id number] [address] [address] [id number] I MR#: [id number] NAME: RADU FARIAS ROOM: 322 Age: 51 Sex: M Admission Date: 12/04/2016 : 1965 Attending Physician: Augustina Sanchez M.D. Primary Care Physician: Gordon Garcia M.D. Requesting Physician: Payal Pena M.D. Consultation Date: 12/05/2016 CONSULTATION REPORT REASON FOR CONSULTATION 1. Abdominal pain. 2. Pancreatic pseudocyst. HISTORY OF PRESENT ILLNESS Thank you very much for asking us to see Mr. Farias. He is a 51-year-old white male who was recently treated for severe acute pancreatitis, felt to be secondary to gallstones and/or alcohol use. He improved and underwent laparoscopic cholecystectomy with intraoperative cholangiogram. His cholangiogram was normal and he went home without difficulty. He developed increased abdominal pain and pressure as well as back pain. He has had some early satiety as well as nausea. He has had no jaundice. He has been voiding overall fairly well and has had bowel movements. He came to the emergency room for evaluation because of his increasing abdominal pain and pressure. He was found on CT scan to have a very large pseudocyst in the lesser sac that was measured at 19.5 x 9 cm. There was anterior displacement of the stomach and lateral displacement of the duodenum. He has had no fevers or chills. There was no real abnormality in the area of laparoscopic cholecystectomy other than some fluid in the gallbladder fossa which is not unexpected after laparoscopic cholecystectomy and for acute pancreatitis. He presents at this time for further evaluation and treatment. PAST MEDICAL HISTORY 1. Anxiety. 2. Acid reflux. 3. Bronchitis. 4. Acute pancreatitis. PAST SURGICAL HISTORY 1. Laparoscopic cholecystectomy. 2. Appendectomy. SOCIAL HISTORY No tobacco use. The patient states that he has had no alcohol use since being discharged from the hospital. FAMILY HISTORY Noncontributory. ALLERGIES No known drug allergies. CURRENT MEDICATIONS Unit #: [id number] #: [id number] Patient: RADU FARIAS Hydrocodone. IMMUNIZATION STATUS Unknown. PHYSICAL EXAMINATION GENERAL: Well-developed, well-nourished white male in no apparent distress. Awake, alert and oriented times three. VITALS: Temperature 99.4, pulse 104, respiratory rate 16, blood pressure 120/71. NECK: Supple. No thyromegaly or adenopathy. BACK: No CVA or spinous tenderness. CHEST: Breath sounds bilaterally to auscultation clear. ABDOMEN: Moderately distended and has fullness in the upper abdomen, but no rebound, peroneal signs or masses. No real guarding, although he has moderate tenderness. His laparoscopic cholecystectomy incisions are healing nicely without infection. EXTREMITIES: No calf tenderness. DIAGNOSTIC STUDIES LABORATORY: The patient has a glucose of 127, creatinine 1.8, potassium 5.7, creatinine 1.8. His liver function studies are normal. Amylase was 291. White blood cell count 25.6, hemoglobin 13, hematocrit 40.7. ASSESSMENT/PLAN The patient is a 51-year-old white male who had an episode recently of severe acute pancreatitis. He has a large pancreatic pseudocyst and lesser sac with pressure on the stomach and duodenum. He has no CT scan evidence of infection. All was discussed with Dr. Woods. He agrees with IV fluids, IV antibiotics and supportive care. It would be best to allow the pseudocyst to mature and develop a thickened wall and to have the acute inflammation subside with eventual transgastric drainage as percutaneous drainage per CT scan may result in a times a pancreatic cutaneous fistula. If, however, the patient developed signs of infection or has persistent pain, pressure and symptoms, he may need to have this performed. All of this has been explained to the patient as well as his in detail. He understands completely and agrees to proceed with the current treatment plan. Dictated by... Diego Johnson M.D. JPG/gz TD: 12/05/2016 10:23 JOB #: [id number] CC: [facility] Payal Pena M.D. Unit #: [id number] #: [id number] Patient: RADU FARIAS CONSULTATION REPORT Page 1 of 1 X Diego Johnson MD CONSULTATION REPORT
--- NOTE | ~2016-12-04 | CT2 ---
[facility] A Service of [facility] & [facility] RADIOLOGY TEXT RESULTS PATIENT: RADU FARIAS LOCATION: C3A 322-01 : [birth year] UNIT #: [id number] AGE: [address]: Augustina Sanchez MD SEX: M ORDER DR: [id number] [facility] [address] [facility] [place], [place] [address] [id number] I MR#: [id number] #: [id number] NAME: RADU FARIAS : 1965 SEX: M STUDY DATE/TIME: 12/04/2016 18:12 [facility] 13808 STUDY DESCRIPTION: CT Abd and Pelv W Cont Attending Physician: Payal Pena M.D. Ordering Physician: Staci Esteves M.D. Primary Care Physician: Gordon Garcia M.D. MEDICAL IMAGING REPORT This report is preliminary unless electronic signature is present EXAM CT abdomen and pelvis with contrast. INDICATION Abdominal pain and nausea since having gallbladder removed [address] abdomen and pelvis was performed following administration of IV contrast. Coronal and sagittal reformatted images were obtained. Comparison is made with 11/15/2016. This CT exam was performed with one or more of the following radiation dose reduction techniques: automatic exposure control, adjustment of mA and/or kV according to patient size, and iterative reconstruction. FINDINGS Evaluation of the lung bases demonstrates a trace left-sided pleural effusion. The liver is unremarkable. There has been interval cholecystectomy. There is a very small collection in the gallbladder fossa measuring about 4.4 cm x 3.1 cm. No air within the collection. There is no intrahepatic biliary ductal dilatation. The spleen is unremarkable. The kidneys are unremarkable. The adrenal glands are unremarkable. There is a severely abnormal appearance of the pancreas. On the study from November 15 the patient had acute pancreatitis. On today's study there is a very large collection conforming to the pancreas measuring about 19 cm x 8.4 cm on axial image #30. Collection extends inferiorly adjacent to the duodenum in the region of the head and neck of the pancreas. There is very little identifiable normal pancreatic tissue. Findings are most suggestive of severe necrotizing pancreatitis. The large collection is STS. [facility] A Service of [facility] RADIOLOGY TEXT RESULTS PATIENT: RADU FARIAS LOCATION: C3A 322-01 : [birth year] UNIT #: [id number] AGE: [address]: Augustina Sanchez MD SEX: M ORDER DR: fluid in attenuation and may represent a very large pseudocyst, however, infection cannot be excluded. The duodenal sweep is displaced laterally and inferiorly by the collection. PELVIS: There is a small amount of free fluid the pelvis. Scattered diverticula within the sigmoid. The appendix is surgically absent. The bone windows are unremarkable. IMPRESSION 1. Abnormal exam. The patient has evidence of severe necrotizing pancreatitis. There is very little identifiable normal pancreatic tissue. In the region of the pancreas there is a massive fluid collection measuring at least 19 cm x 8.4 cm. This may be a very large pseudocyst, however abscess cannot be excluded. 2. Patient has undergone interval cholecystectomy with a very small fluid collection in the gallbladder fossa. Findings discussed with Dr. Esteves in the ER at 06:45 p.m. Dictated by... Lazarus Lovell M.D. THIS IS AN ELECTRONICALLY VERIFIED REPORT Lazarus Lovell M.D. at 12/05/2016 10:03 AM ELIO/jani TD: 12/04/2016 23:08 JOB #: [id number] MEDICAL IMAGING REPORT Page 1 of 1 COPY
--- NOTE | ~2016-12-04 | EKG ---
PATIENT: RADU FARIAS UNIT #: [id number] Ventricular Rate: 95 BPM Atrial Rate: 95 BPM P-R Interval: 154 ms QRS Duration: 88 ms Q-T Interval: 344 ms QTC Calculation(Bezet): 432 ms P [place]: 36 degrees Calculated R [place]: 23 degrees Calculated T [place]: 37 degrees Diagnosis Line: Normal sinus rhythm Diagnosis Line: Normal ECG Diagnosis Line: When compared with ECG of 19-NOV-2016 11:57, Diagnosis Line: No significant change was found Diagnosis Line: Confirmed by LOIDA SYLVESTER MD ([id number]) on 12/05/2016 Diagnosis Line: 10:49:51 PM INTERPRETING MD: HIGINIO MORGAN
--- NOTE | ~2016-12-04 | HP ---
Unit #: [id number] #: [id number] Patient: RADU FARIAS [id number] [address] [place], [place] [address] [id number] I MR#: [id number] NAME: RADU FARIAS ROOM: 08871 Age: 51 Sex: M Admission Date: 12/04/2016 : 1965 Attending Physician: Payal Pena M.D. Primary Care Physician: Gordon Garcia M.D. HISTORY AND PHYSICAL CHIEF COMPLAINT Necrotizing pancreatitis and likely very large pseudocyst. HISTORY OF PRESENT ILLNESS This pleasant 51-year-old male with hypertension, GERD, and recent admission three weeks ago for pancreatitis thought to be related to gallstones and possibly related to alcohol, is readmitted for necrotizing pancreatitis. Again, the patient was admitted three weeks ago for pancreatitis related to gallstones versus alcohol. Ultimately, he underwent a laparoscopic cholecystectomy. He was discharged home and states that he never completely improved. However, about five days ago he began to note increasing generalized abdominal pain localizing to the upper abdomen and more recently abdominal distention, belching, and nausea. He notes decreased urinary output for the past two days. Today, he had increased pain and cold sweats. He presented to this emergency department mildly tachycardic but with otherwise stable vital signs. His lipase is normal. However, a CT scan shows severe necrotizing pancreatitis with massive fluid collection measuring 19 cm likely representing enlarged pseudocyst, although abscess could not be excluded, and small fluid collection around the gallbladder fossa. The patient was bolused with IV fluids and given Dilaudid, Zofran, and Phenergan. PAST MEDICAL HISTORY 1. Admission three weeks ago for pancreatitis either related to gallstones or alcohol. He underwent laparoscopic cholecystectomy. 2. Gastroesophageal reflux disease. 3. Hypertension. 4. Previous history of hepatitis B. 5. Anxiety. 6. Previous history of hyperlipidemia, although patient's triglyceride level last admission was only 88. 7. Negative stress Cardiolite in 2010. 8. Appendectomy. ALLERGIES No known drug allergies. Patient is allergic to cat dander. HOME MEDICATIONS 1. Lotrel 5/10 mg daily. 2. P.r.n. Ativan which the patient takes perhaps once a month. 3. Some Lortab. Unit #: [id number] #: [id number] Patient: RADU FARIAS FAMILY HISTORY Coronary artery disease, pancreatitis, and gallbladder disease. SOCIAL HISTORY The patient lives with his . He stopped smoking 20 years ago. He was drinking six to 12 beers on a daily basis but has not used alcohol for the past three weeks. He does not use illicit drugs. REVIEW OF SYSTEMS Notable for increasing abdominal pain, pancreatitis, GERD, hypertension, hepatitis B, anxiety, above-mentioned surgeries, decreased urinary output, and cold sweats. All other systems were reviewed and are otherwise negative. PHYSICAL EXAMINATION GENERAL APPEARANCE: Pleasant, obese, 51-year-old male currently in no acute distress after receiving Dilaudid. VITAL SIGNS: Temperature 97.8, pulse 113, respirations 16, blood pressure 125/78, and O2 saturation is 98% on room air. HEENT: Eyes PERRLA. Extraocular muscles are intact. Pharynx is benign with dry mucosal membranes. NECK: Supple without adenopathy or thyromegaly. CHEST: Clear. CARDIAC: Normal S1 and S2 without S3, S4, or murmur. ABDOMEN: Bowel sounds are diminished. There is some mild bruising around the umbilicus. Generalized abdominal tenderness which localizes to the upper abdomen bilaterally and mid abdomen. No rebound or guarding at this time. EXTREMITIES: Without edema. NEUROLOGIC: Patient is awake, alert, and oriented. Cranial nerves are intact. Equal strength throughout. DIAGNOSTIC STUDIES ADMISSION LABORATORY: Hematocrit is 43.7, white blood count is 17.6, and normal platelet count. SMA-12 with glucose of 132 and albumin 3.3. Lipase is normal. Lactic acid normal. Urine with trace leukocyte esterase without significant white or red cells. IMAGING: CT scan shows severe necrotizing pancreatitis with massive fluid collection measuring 19 cm likely representing a large pseudocyst, although abscess could not be excluded, and small fluid collection around the gallbladder fossa. ASSESSMENT 1. Necrotizing pancreatitis with likely very large pseudocyst. 2. Recent admission three weeks ago for gallbladder pancreatitis versus alcohol-induced pancreatitis. Patient stopped drinking alcohol. He is status post laparoscopic cholecystectomy. 3. Essential hypertension. 4. History of hepatitis B. 5. Gastroesophageal reflux disease. PLANS 1. Aggressive IV fluids. 2. Start meropenem. 3. Supportive treatment. 4. Surgical consultation. 5. DVT and gastritis prophylaxis. Unit #: [id number] #: [id number] Patient: RADU FARIAS 1. Dictated by Payal Pena M.D. AML/am TD: 12/04/2016 22:22 JOB #: [id number] HISTORY AND PHYSICAL Page 1 of 1 X Payal Pena MD X HISTORY AND PHYSICAL
--- NOTE | ~2016-12-04 | A ---
[facility] Nutrition Therapy DATE: 12/05/16 Patient: RADU FARIAS Physician: MARLEEN Address: [address] [place] [address] DRIVE Room/Bed: [address] [place] [address], Zip: [place] [address] Admit Date: 12/04/16 Date of : [birth year] Height: 5 9 Weight: 270 122.46 NUTRITIONAL ASSESSMENT: REASON: 5 points nutrition screen risk RE: 30# weight loss and eating poorly 51 yo male admitted for necrotizing pancreatitis, possible pancreatic cyst PMH: HTN, GERD, cholecystectomy, pancreatitis, HLD (h/o) Anthropometrics: Ht: 69" Wt: 122.4 kg BMI: 39.9 Meds: Pepcid, NaCl, zofran Labs: Gluc 133 Ca++ 8.3 Alb 3.0 Amylase 291 I/O & Bowel function: 1100/- , Last BM 12/03 Skin Integrity: No breakdown noted Edema: none noted Estimated Nutrition Needs: Increased d/t diagnosis Diet: Clear liquids Assessment: Chart reviewed, events noted. 51 yo male admitted for necrotizing pancreatitis, with recent previous admission for pancreatitis. Pt has been ordered a clear liquid diet. RD spoke with the pt and his at bedside. Pt reports abdominal distention and n/v prior to admission. Last time the pt vomited was yesterday. Pt states that he has lost ~30# since his hospitalization October. Pt attributes this to early satiety d/t his stomach being distended, as well as n/v. Pt is doing his best to consume clear liquids, and reports that he is tolerating them today. RD explained the progression to low fat diet once deemed feasible by MD. Pt and his voiced understanding. Pt is agreeable to Ensure clear TID. Pt falling in and out of sleep. RD will provide low fat diet education when appropriate. Dx: Inadequate nutrient intake RT necrotizing pancreatitis AEB clear liquid diet, n/v, poor intake since October. Intervention: 1. Clear liquid diet 2. Advance to low fat diet as tolerated/ medically feasible 3. Ensure clear TID [facility] Nutrition Therapy DATE: 12/05/16 Patient: RADU FARIAS Physician: MARLEEN Address: [facility] [facility] [facility] [address] [address] Room/Bed: [address] [place] [address], Zip: [place] [address] Admit Date: 12/04/16 Date of : [birth year] Height: 5 9 Weight: 270 122.46 Monitoring, Evaluation and Goals: 1. Oral intake; tolerate >75% of clear liquid meals 2. Labs; WNL 3. Weight; preserve lean body mass Recommendations: 1. Continue clear liquid diet as tolerated. 2. Ensure Clear TID for supplemental nutrition. 3. Once medically feasible when deemed appropriate by MD, advance the pt to a low fat diet as tolerated. RD will provide low fat diet education once appropriate. Pt is at moderate nutritional risk. RD will follow hospital course per protocol. Respectfully, ELISE WANG RD, LD [facility] cc: client file
--- NOTE | ~2016-12-04 | CO ---
Unit #: [id number] #: [id number] Patient: RADU FARIAS [id number] [address] [id number] Rishi MR#: [id number] NAME: RADU FARIAS ROOM: 322 Age: 51 Sex: M Admission Date: 12/04/2016 : 1965 Attending Physician: Augustina Sanchez M.D. Primary Care Physician: Gordon Garcia M.D. Consultation Date: 12/04/2016 CONSULTATION REPORT REASON FOR CONSULT Renal failure. Thank you very much for having me see this patient in consultation. HISTORY OF PRESENT ILLNESS Mr. Radu Farias is a 51-year-old gentleman who was here in the hospital from 11/14-11/21 with pancreatitis felt possibly related to either alcohol versus a gallstone. He underwent a laparoscopic cholecystectomy. He was still feeling bad when he went to home and continued to feel bad where he presented here with increased abdominal pain and apparently some nausea and vomiting, some diarrhea, cold sweats, and decreased appetite over the last few days. He was noted yesterday to have a BUN and creatinine of 11 and 0.9. In the emergency room, he underwent a CT scan with contrast of his abdomen showing necrotizing pancreatitis as well as a 19 cm pseudocyst. His creatinine today was up to 1.8. Because of this, I was asked to see the patient. Patient did have traumatic Loya placement when he was in the hospital back in early November. He states he is having some little difficulty urinating and some decreased output now. PAST MEDICAL HISTORY History of pancreatitis, history of gallstones, status post laparoscopic cholecystectomy in 12/03, history of hypertension, history of gastroesophageal reflux disease, history of hepatitis C, history of hyperlipidemia, history of anemia, and history of the pancreatitis. SOCIAL HISTORY He is . Previous smoker, none now. Positive alcohol use still, but none in the last three weeks. ALLERGIES No known drug allergies. MEDICATIONS His medicines at home included Lotrel for blood pressure. Here, he is on: 1. Zofran. 2. Pepcid. 3. Dilaudid. 4. Meropenem. 5. P.R.N. hydralazine only. REVIEW OF SYSTEMS Unit #: [id number] #: [id number] Patient: RADU FARIAS As mentioned in the HPI. Denies any visual problems, sinus problems, cough, hemoptysis, sore throat, or difficulty swallowing. No neck pain or neck stiffness. No chest pain, chest heaviness, or palpitations. No significant shortness of breath. No lower extremity edema. Rest as mentioned above. No recent skin rashes. PHYSICAL EXAMINATION GENERAL: He is alert. VITAL SIGNS: Temperature 99.4, pulse is 98-113, and blood pressure 108-128/60s-80. HEENT: Normocephalic and atraumatic. Pupils are equal, round, and reactive to light. Extraocular muscles are intact. Hearing appears to be normal. Mouth clear. No erythema. No exudate. NECK: Supple. No JVD. No adenopathy. CARDIAC: Appears to have a regular rhythm without a rub. No S3 or S4. LUNGS: Clear bilaterally. No wheezes, rhonchi, or rales. ABDOMEN: Diffuse tenderness. Bowel sounds are positive. Obese. EXTREMITIES: He has no lower extremity swelling. His pulses are intact in upper and lower extremities. JOINTS: No joint pain or joint swelling. SKIN: No acute rashes. NEURO: Appears intact motor and sensory grossly. : Deferred. DIAGNOSTIC STUDIES LABORATORY: Data shows sodium of 137, potassium 5.7, chloride is 103, bicarb is 23, BUN of 18, creatinine of 1.8, glucose of 127, and albumin is 3. Amylase 291 and lipase 44. Lactic acid 1.6. INR is 1.2. Hemoglobin is 13, white count 25,600, and platelets 354,000. UA shows specific gravity of 1.04, 2+ protein, 2-5 RBCs, and 2-5 WBCs. On 11/16, he had 1+ protein. IMAGING: CT scan: His kidneys were normal. Again, it was done with contrast with a large pseudocyst, as mentioned above. ASSESSMENT AND PLAN 1. Acute kidney injury. This gentleman has acute renal failure, most likely as combination of volume depletion from third space fluid from his pancreatitis and certainly agree with aggressive IV fluids. Also, it could be related to contrast dye that he received with his CT yesterday and a dehydrated state. Certainly agree with IV fluids and avoiding other nephrotoxins for now. Will continue IV fluids. He was on 1/2 normal saline with 20 of KCl and that has now been changed to normal saline. No reason to do a renal ultrasound. He had a CT scan done yesterday. We will check some urine studies, urine culture, and blood cultures. Will check urine sodium, urine eosinophils, and check BMP later today and then a full set of labs in the morning. 2. Hyperkalemia. Patient with increased potassium, 5.7. Certainly, it could be related to potassium in his IV fluids as well as, of course, is acute renal insufficiency. We will recheck lateral today and, depending on what it shows, (1) further workup and treatment. 3. Pancreatitis. Continue IV fluids. 4. History of hypertension. Agree with holding his Lotrel for now. 5. Increased WBCs. Certainly could be related to his abdominal process, but, again, will check blood and urine cultures. Unit #: [id number] #: [id number] Patient: RADU FARIAS Dictated by... Taz Palomares/edward TD: 12/06/2016 05:48 JOB #: [id number] CONSULTATION REPORT Page 1 of 1 X Elder Gramajo MD X CONSULTATION REPORT
--- NOTE | ~2016-12-04 | DS ---
Unit #: [id number] #: [id number] Patient: RADU FARIAS [id number] [address] [address] [id number] MR#: [id number] NAME: RADU FARIAS ROOM: 218 Age: 51 Sex: M Admission Date: 12/04/2016 : 1965 Discharge Date: 12/07/2016 Attending Physician: Augustina Sanchez M.D. Primary Care Physician: Gordon Garcia M.D. DISCHARGE SUMMARY PRINCIPAL DIAGNOSES 1. Large pancreatic pseudocyst following recent pancreatitis. 2. Acute kidney injury, prerenal, resolved. 3. Systemic inflammatory response syndrome, resolved. 4. Hyperkalemia, resolved, likely angiotensin-converting enzyme inhibitor induced. 5. Hypertension. 6. Recent laparoscopic cholecystectomy secondary to cholelithiasis and pancreatitis. 7. Moderate protein malnutrition. 8. Morbid obesity. 9. Hepatic steatosis. 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 PROCEDURE CT scan of abdomen and pelvis with contrast, on December 04, 2016, with a large pancreatic pseudocyst measuring 19 cm x 8.4 cm. No obvious evidence of abscess, however, small amount of fluid collection gallbladder fossa secondary to recent cholecystectomy. CLINICAL HISTORY AND HOSPITAL COURSE Mr. Farias is a very nice, 51-year-old male who presents back to the emergency department with complaints of abdominal pain. The patient was hospitalized at this facility from November 15 through November 21 secondary to pancreatitis that was questionably alcohol versus gallstone induced and underwent laparoscopic cholecystectomy. Again, he presents back with nausea, vomiting and abdominal pain. Please refer to H and P for further details. CT scan of the abdomen and pelvis revealed a large pancreatic pseudocyst and patient was subsequently readmitted. LSA was consulted. The patient was started on empiric antibiotics for questionable abscess, though clinically he has not had any fever. He has had some leukocytosis that I suspect is reactive in origin and, on day of discharge, WBC count is now down to 11.3. I will note this is the lowest level he has had since hospitalization in late October. After discussion with Dr. Woods, the plan is to allow the patient's pseudocyst to mature and, in six to eight weeks, the patient will be referred to Dr. Tianna Victor [place] for further evaluation of the pseudocyst and drainage, if necessary. This has all been discussed with the patient who expresses understanding. Initial CT scan revealed questionable pancreatitis but clinically the Unit #: [id number] #: [id number] Patient: RADU FARIAS patient does not match pancreatitis and his amylase and lipase have been normal. I do not feel he has necrotizing pancreatitis. The patient does have some underlying hypertension and I am going to discharge him home only on the Norvasc component of his blood pressure pill particularly given SHANE inhibitors can contribute to pancreatitis. This has been discussed with the patient. I am also going to discharge him home with several weeks off of work. DISCHARGE CONDITION Stable. DISCHARGE STATUS Discharged to home. DISCHARGE MEDICATIONS 1. Norvasc 5 mg daily. 2. [place] 10/325 mg one tablet p.o. q.6 hours p.r.n. for pain. Number given 30. 3. Flagyl 500 mg one p.o. t.i.d. for another five days. DISCHARGE INSTRUCTIONS 1. The patient was instructed to follow a low fat diet. 2. He can increase his activity as tolerated. 3. He has been released off work through December 23, 2016. FOLLOWUP The patient will follow up with Dr. Woods in approximately three weeks and, again, the plan is to refer to Dr. Tianna Victor at [facility] for further evaluation of the pseudocyst in approximately six to eight weeks. Dictated by... Augustina Sacnhez M.D. DARLYN/maria t TD: 12/09/2016 13:38 JOB #: [id number] DISCHARGE SUMMARY Page 1 of 1 X Augustina Sanchez MD X DISCHARGE SUMMARY
--- NOTE | ~2016-12-04 | FU ---
[facility] Nutrition Therapy DATE: 12/07/16 Patient: RADU FARIAS Physician: MARLEEN Address: [address] Room/Bed: [address] [place] [address], Zip: [place] [address] Admit Date: 12/04/16 Date of : [birth year] Height: 5 9 Weight: 279 127 NUTRITION MONITORING/FOLLOW-UP: Reason: CONSULT RE: LOW FAT DIET EDUCATION HT: 5'9", WT: 279# (127 KG), BMI: 41.2 RD PROVIDED WRITTEN AND VERBAL LOW FAT DIET EDUCATION. RD PROVIDED LIST OF FOODS TO AVOID/LIMIT AND FOODS TO EAT MORE OFTEN. RD DISCUSSED IMPLICATIONS FOR FOLLOWING DIET AT HOME. RD ALSO EMPHASIZED IMPORTANCE OF CONSUMING SMALL FREQUENT MEALS TO AVOID FURTHER GI DISCOMFORT. PT AND FAMILY AT BEDSIDE REPORTED NO DIET QUESTIONS AT THIS TIME. RD TO REMAIN AVAILABLE. RECOMMENDATIONS: 1. ENCOURAGE COMPLIANCE OF CURRENT DIET ORDER-LOW FAT RD WILL F/U PER PROTOCOL Respectfully, IAN NASSAR MS, RD, LD Food and Nutritional Services [facility] cc: client file
[2016-12-04 14:55] LABS: BASOPHIL# 0.2 X10e3 (0-0.3); BASOPHIL% 1.2 % (0-2.5); EOSINOPHIL# 0.4 X10e3 (0-0.7); EOSINOPHIL% 2.4 % (0.0-7.0); HEMATOCRIT 43.7 % (38.0-50.0); HEMOGLOBIN 14.1 gm/dL (13.0-16.0); LYMPHOCYTE# 1.9 X10e3 (1.0-3.5); MEAN CORPUSCULAR HEMOGLOBIN 29.3 PG (28-34); MEAN CORPUSCULAR HGB CONC 32.3 g/dL (30-36); MEAN PLATELET VOLUME 9.2 FL (6.5-11.5); MONOCYTE# 0.9 X10e3 (0-1.0); MONOCYTE% 5.2 % (3.0-12.0); NEUTROPHIL# 14.1 X10e3 (1.5-7.1); NEUTROPHIL% 80.2 % (40-75); PLATELET COUNT 332 X10e3 (140-420); RED CELL DISTRIBUTION WIDTH 13.6 % (11.0-15.5); WHITE BLOOD COUNT 17.6 X10e3 (4.0-10.5)
[2016-12-04 15:01] LABS: DIFF IND YES
[2016-12-04 15:16] LABS: ALBUMIN SERUM 3.3 g/dL (3.5-5.0); BILIRUBIN, DIRECT 0.2 mg/dL (0.0-0.2); BILIRUBIN,INDIRECT 0.4 mg/dL (0.0-0.9); BILIRUBIN,TOTAL 0.6 mg/dL (0.2-2.0); BUN/CREATININE RATIO 12.22; CALCIUM SERUM 9.3 mg/dL (8.4-10.2); CREATININE SERUM 0.9 mg/dL (0.6-1.4); GLOM FILT RATE Estimated 99.9 mL/min (>60); PROTEIN TOTAL SERUM 8.2 g/dL (6.0-8.3)
[2016-12-04 15:23] LABS: ANISOCYTOSIS SL; PLATELET ESTIMATE NORMAL (NORMAL)
[2016-12-04 16:30] LABS: URINE SOURCE CLEAN CATCH
[2016-12-04 16:42] LABS: URINE APPEARANCE CLOUDY; URINE BLOOD NEG (NEG); URINE COLOR DK YELLOW; URINE GLUCOSE NEG (NEG); URINE KETONE TRACE (NEG); URINE LEUKOCYTE ESTERASE TRACE (NEG); URINE NITRATE NEG (NEG); URINE PROTEIN 2+ (NEG)
[~2016-12-04 16:43] MED LIST changes: +AMLODIPINE-BENA1 CA1 PO; +ATIVAN PO; +HYDROCODON-ACE1 EAC7 PO
[2016-12-04 16:46] LABS: URINE BACTERIA AUWI NEG (NEGATIVE); URINE SQUAMOUS EPITHELIAL CELL OCC /[HPF]
[2016-12-04 16:50] LABS: CULTURE INDICATED? NO; URINE BILIRUBIN NEG (NEG)
[2016-12-04] MEDS ORDERED: HYDROCODON-ACE1 EAC7 PO (20:08)
[2016-12-04] MEDS ORDERED: AMLODIPINE-BEN1 EAC1 PO (20:09)
[2016-12-05 04:34] LABS: BASOPHIL# 0.3 X10e3 (0-0.3); BASOPHIL% 1.2 % (0-2.5); EOSINOPHIL% 0.2 % (0.0-7.0); HEMATOCRIT 40.7 % (38.0-50.0); LYMPHOCYTE# 1.7 X10e3 (1.0-3.5); LYMPHOCYTE% 6.7 % (17.0-45.0); MEAN CELL VOLUME 91.5 FL (83-96); MEAN CORPUSCULAR HEMOGLOBIN 29.2 PG (28-34); MEAN CORPUSCULAR HGB CONC 31.9 g/dL (30-36); MEAN PLATELET VOLUME 9.6 FL (6.5-11.5); MONOCYTE# 1.7 X10e3 (0-1.0); MONOCYTE% 6.7 % (3.0-12.0); NEUTROPHIL# 21.8 X10e3 (1.5-7.1); NEUTROPHIL% 85.2 % (40-75); PLATELET COUNT 354 X10e3 (140-420); RED BLOOD COUNT 4.45 X10e (3.90-5.60); RED CELL DISTRIBUTION WIDTH 14.1 % (11.0-15.5); WHITE BLOOD COUNT 25.6 X10e3 (4.0-10.5)
[2016-12-05 04:35] LABS: DIFF IND NO
[2016-12-05 04:45] LABS: INR 1.2; PARTIAL THROMBOPLASTIN TIME 28.2 SECONDS (23.5-31.3); PROTHROMBIN TIME (PATIENT) 12.4 SECONDS (9.6-11.5)
[2016-12-05 04:56] LABS: BILIRUBIN,TOTAL 1.3 mg/dL (0.2-2.0); CALCIUM SERUM 8.5 mg/dL (8.4-10.2); CREATININE SERUM 1.8 mg/dL (0.6-1.4); GLOM FILT RATE Estimated 43.2 mL/min (>60); PROTEIN TOTAL SERUM 7.3 g/dL (6.0-8.3)
[2016-12-05 05:00] LABS: POTASSIUM 5.7 mmol/L (3.5-5.1)
[2016-12-05 12:54] LABS: BUN/CREATININE RATIO 15.45; CALCIUM SERUM 8.3 mg/dL (8.4-10.2); CREATININE SERUM 1.1 mg/dL (0.6-1.4); GLOM FILT RATE Estimated 78.4 mL/min (>60); POTASSIUM 4.6 mmol/L (3.5-5.1)
[2016-12-06 05:57] LABS: HEMATOCRIT 35.2 % (38.0-50.0); HEMOGLOBIN 11.1 gm/dL (13.0-16.0); MEAN CELL VOLUME 92.4 FL (83-96); MEAN CORPUSCULAR HGB CONC 31.4 g/dL (30-36); MEAN PLATELET VOLUME 9.7 FL (6.5-11.5); RED BLOOD COUNT 3.81 X10e (3.90-5.60); RED CELL DISTRIBUTION WIDTH 13.9 % (11.0-15.5); WHITE BLOOD COUNT 19.5 X10e3 (4.0-10.5)
[2016-12-06 06:09] LABS: ALBUMIN SERUM 2.4 g/dL (3.5-5.0); BILIRUBIN,TOTAL 0.7 mg/dL (0.2-2.0); BUN/CREATININE RATIO 15.55; CALCIUM SERUM 8.3 mg/dL (8.4-10.2); CREATININE SERUM 0.9 mg/dL (0.6-1.4); GLOM FILT RATE Estimated 99.9 mL/min (>60); PHOSPHOROUS 2.5 mg/dL (2.5-4.6); POTASSIUM 4.7 mmol/L (3.5-5.1); PROTEIN TOTAL SERUM 6.3 g/dL (6.0-8.3)
[2016-12-07 06:07] LABS: HEMATOCRIT 33.3 % (38.0-50.0); HEMOGLOBIN 10.5 gm/dL (13.0-16.0); MEAN CORPUSCULAR HEMOGLOBIN 29.1 PG (28-34); MEAN CORPUSCULAR HGB CONC 31.6 g/dL (30-36); MEAN PLATELET VOLUME 9.6 FL (6.5-11.5); RED BLOOD COUNT 3.62 X10e (3.90-5.60); RED CELL DISTRIBUTION WIDTH 14.2 % (11.0-15.5); WHITE BLOOD COUNT 11.3 X10e3 (4.0-10.5)
[2016-12-07 06:45] LABS: BUN/CREATININE RATIO 15.71; CALCIUM SERUM 8.2 mg/dL (8.4-10.2); CREATININE SERUM 0.7 mg/dL (0.6-1.4); GLOM FILT RATE Estimated 110.9 mL/min (>60); POTASSIUM 4.2 mmol/L (3.5-5.1)
[2016-12-07] MEDS ORDERED: AMLODIPINE BESYL5 MG PO (14:20)
[2016-12-07] MEDS ORDERED: HYDROCODON-ACE1 EAC5 PO (14:21)
[2016-12-07] MEDS ORDERED: FLAGYL PO (14:21)
== END 2016-12-07 14:52 | disposition home or self-care (01) | DRG 439 ==
LOC: CED 16:43 → CEDOF 22:10 → C3A PCU 12-05 05:10 → C2A 12-06 16:56
PROVIDERS: Internal Medicine; Internal Medicine Nephrology; Surgery
DX: K86.3 Pseudocyst of pancreas (principal); N17.9 Acute kidney failure, unspecified; R65.10 Systemic inflammatory response syndrome (SIRS) of non-infectious origin without acute organ dysfunction; E44.0 Moderate protein-calorie malnutrition; E87.5 Hyperkalemia; E66.01 Morbid (severe) obesity due to excess calories; K76.0 Fatty (change of) liver, not elsewhere classified; B19.10 Unspecified viral hepatitis B without hepatic coma; I10 Essential (primary) hypertension; Z68.39 Body mass index [BMI] 39.0-39.9, adult; K21.9 Gastro-esophageal reflux disease without esophagitis; Z87.891 Personal history of nicotine dependence; F41.9 Anxiety disorder, unspecified; Z82.49 Family history of ischemic heart disease and other diseases of the circulatory system; Z83.79 Family history of other diseases of the digestive system; Z90.49 Acquired absence of other specified parts of digestive tract
CPT/HCPCS: 36415; 74177; 80048; 80053; 80076; 81003; 82150; 83605; 83690; 83735; 84100; 84300; 85025; 85027; 85610; 85730; 87040; 87086; 89190; 93005; 96361; 96372; 96374; 96375; 99285; J1170; J1650; J2185; J2405; J2543; J2550; Q9967

== ENCOUNTER → 2016-12-17 | Outpatient (CLI) | payer OTHER ==
[~2016-12-17] MED LIST changes: +AMLODIPINE BESYL5 MG PO; +AMLODIPINE-BEN1 EAC1 PO; +FLAGYL PO; +HYDROCODON-ACE1 EAC5 PO; +PATIENT'S PHARMACY; +ZOFRAN ODT4 M1 PO
[2016-12-17 13:32] LABS: ALBUMIN SERUM 3.8 g/dL (3.5-5.0); BILIRUBIN,TOTAL 0.5 mg/dL (0.2-2.0); BUN/CREATININE RATIO 14.44; CALCIUM SERUM 9.4 mg/dL (8.4-10.2); CREATININE SERUM 0.9 mg/dL (0.6-1.4); GLOM FILT RATE Estimated 99.9 mL/min (>60); POTASSIUM 4.5 mmol/L (3.5-5.1); PROTEIN TOTAL SERUM 7.4 g/dL (6.0-8.3)
== END | disposition home or self-care (01) ==
LOC: CLAB 11:07
PROVIDERS: Internal Medicine
DX: K85.91 Acute pancreatitis with uninfected necrosis, unspecified (principal)
CPT/HCPCS: 80053; 83690

== ENCOUNTER 2017-01-02 12:31 | Emergency (ER) | payer OTHER ==
--- NOTE | ~2017-01-02 | CT2 ---
[facility] A Service of [facility] RADIOLOGY TEXT RESULTS PATIENT: RADU FARIAS LOCATION: [facility] : [birth year] UNIT #: [id number] AGE: [address]: Simon Stoner MD SEX: M ORDER DR: [id number] [facility] [address] [place], [place] [address] [id number] MR#: [id number] Acc #: [id number] NAME: RADU FARIAS : 1965 SEX: M STUDY DATE/TIME: 01/02/2017 14:25 UNIT: [facility] ROOM: STUDY DESCRIPTION: CT Abd and Pelv W Cont Attending Physician: Simon Stoner M.D. Ordering Physician: Simon Stoner M.D. Primary Care Physician: Gordon Garcia M.D. MEDICAL IMAGING REPORT This report is preliminary unless electronic signature is present EXAM CT abdomen and pelvis with contrast INDICATIONS Worsening abdominal pain for the last day. Nausea, vomiting. History of pancreatitis and pseudocyst. TECHNIQUE CT of the abdomen and pelvis was performed following administration of IV contrast. Coronal and sagittal reformatted images were obtained. This CT exam was performed with one or more of the following radiation dose reduction techniques: automatic exposure control, adjustment of mA and/or kV according to patient size, and iterative reconstruction. COMPARISON STUDIES 12/04/2016. FINDINGS There is trace pleural fluid on the left. The pleural effusion has decreased compared to the prior study. There is persistent atelectasis in the left lower lobe. There is very small amount of fluid adjacent to the distal esophagus which is probably herniated through a hiatal hernia. The liver is unremarkable. Prior cholecystectomy. Fluid collection in the gallbladder fossa slightly decreased in size measuring 3.8 x 2.9 cm. Previously, it was 4.4 x 3.1 cm. Spleen is unremarkable. Scant fluid adjacent to the spleen. Adrenal glands and kidneys are unremarkable. Re-demonstrated is a massive fluid collection which essentially replaces the entire pancreas and is consistent with the patient's history of a pseudocyst. Overall, it has increased in size. Maximum dimension in the [facility] A Service of [facility] RADIOLOGY TEXT RESULTS PATIENT: RADU FARIAS [id number] [birth year] UNIT #: [id number] AGE: [address]: Simon Stoner MD SEX: M ORDER DR: region of the pancreatic body and tail is 21.5 x 9.8 cm. Previously, this was 19 x 8.4 cm. Maximum dimension in the region of the pancreatic head is 8.4 x 8.2 cm, previously 6 x 6.3 cm. PELVIS: There is a very small amount of free fluid in the deep pelvis which is stable. There are scattered diverticula within the colon. Small fat-containing inguinal hernia on the right. The bones are unremarkable. IMPRESSION 1. Interval enlargement of massive pancreatic pseudocyst as described above. 2. Small fluid collection within the gallbladder fossa has decreased in size. Dictated by... Lazarus Lovell M.D. THIS IS AN ELECTRONICALLY VERIFIED REPORT Lazarus Lovell M.D. at 01/03/2017 9:11 AM ELIO/kandice TD: 01/02/2017 15:08 JOB #: [id number] MEDICAL IMAGING REPORT Page 1 of 1 COPY
[~2017-01-02 12:31] MED LIST changes: -PATIENT'S PHARMACY; -ZOFRAN ODT4 M1 PO
[2017-01-02 13:04] LABS: BASOPHIL# 0.1 X10e3 (0-0.3); BASOPHIL% 0.6 % (0-2.5); DIFF IND NO; EOSINOPHIL# 0.1 X10e3 (0-0.7); EOSINOPHIL% 0.8 % (0.0-7.0); HEMATOCRIT 45.4 % (38.0-50.0); HEMOGLOBIN 14.7 gm/dL (13.0-16.0); LYMPHOCYTE# 1.4 X10e3 (1.0-3.5); LYMPHOCYTE% 10.8 % (17.0-45.0); MEAN CELL VOLUME 85.8 FL (83-96); MEAN CORPUSCULAR HEMOGLOBIN 27.9 PG (28-34); MEAN CORPUSCULAR HGB CONC 32.5 g/dL (30-36); MEAN PLATELET VOLUME 9.7 FL (6.5-11.5); MONOCYTE# 0.8 X10e3 (0-1.0); MONOCYTE% 5.9 % (3.0-12.0); NEUTROPHIL# 10.8 X10e3 (1.5-7.1); NEUTROPHIL% 81.9 % (40-75); PLATELET COUNT 156 X10e3 (140-420); RED BLOOD COUNT 5.29 X10e (3.90-5.60); RED CELL DISTRIBUTION WIDTH 14.9 % (11.0-15.5); WHITE BLOOD COUNT 13.2 X10e3 (4.0-10.5)
[2017-01-02 13:32] LABS: BILIRUBIN, DIRECT 0.3 mg/dL (0.0-0.2); BILIRUBIN,INDIRECT 1.4 mg/dL (0.0-0.9); BILIRUBIN,TOTAL 1.7 mg/dL (0.2-2.0); CALCIUM SERUM 9.3 mg/dL (8.4-10.2); CREATININE SERUM 0.9 mg/dL (0.6-1.4); GLOM FILT RATE Estimated 99.9 mL/min (>60); POTASSIUM 4.3 mmol/L (3.5-5.1); PROTEIN TOTAL SERUM 7.4 g/dL (6.0-8.3)
[2017-01-02 15:11] LABS: URINE SOURCE CLEAN CATCH
[2017-01-02 15:19] LABS: URINE APPEARANCE CLEAR; URINE BLOOD NEG (NEG); URINE COLOR DK YELLOW; URINE GLUCOSE NEG (NEG); URINE KETONE 1+ (NEG); URINE LEUKOCYTE ESTERASE 2+ (NEG); URINE NITRATE NEG (NEG); URINE PH 5.5 (5-8); URINE PROTEIN 1+ (NEG); URINE SPECIFIC GRAVITY 1.054 (1.003-1.035)
[2017-01-02 15:21] LABS: CULTURE INDICATED? YES; URINE BACTERIA AUWI NEG (NEGATIVE); URINE SQUAMOUS EPITHELIAL CELL OCC /[HPF]; UWBCS1 AUWI 50-100 (0-5)
[2017-01-02] MEDS ORDERED: ZOFRAN ODT4 M1 PO (15:22)
[2017-01-02] MEDS ORDERED: PATIENT'S PHARMACY (15:23)
[2017-01-02 15:36] LABS: URINE BILIRUBIN NEG (NEG)
[2017-01-02 15:37] LABS: U HYALINE CASTS AUWI 0-2 /[LPF]; URINE MUCUS PRESENT
== END 2017-01-02 16:55 | disposition home or self-care (01) ==
LOC: CED 12:31
DX: K86.1 Other chronic pancreatitis (principal); K86.3 Pseudocyst of pancreas; K21.9 Gastro-esophageal reflux disease without esophagitis; I10 Essential (primary) hypertension; F17.200 Nicotine dependence, unspecified, uncomplicated; Z90.49 Acquired absence of other specified parts of digestive tract; Z86.19 Personal history of other infectious and parasitic diseases
CPT/HCPCS: 36415; 74177; 80048; 80076; 81003; 82150; 83690; 85025; 87086; 96361; 96374; 96375; 99284; C9113; J1170; J2405; Q9967